=== PATIENT | female | born 1970 | race Two or more races ===

== ENCOUNTER 2016-12-29 13:21 | Emergency (ER) | payer OTHER ==
[~2016-12-29] VITALS: Ht 165.1 cm; Wt 65.0 kg
[2016-12-29 13:24] VITALS: BP 184/88; PULSE 83; RESP 22; TEMP 98.3; O2SAT 100
--- NOTE | 2016-12-29 13:28 | PD ---
Physical Exam Time Seen by Provider: 13:27 Narrative 46 y/o female presents with L flank pain since yesterday. Associated nausea, vomiting. Hx of ureteral stent placement yesterday. Hx limited by patient pain. She is being bedded now. [facility] Medical Record Reviewed: Yes Supervised Visit with KAMILA: Get Valdovinos December 29, 2016 13:28
[2016-12-29] MEDS ORDERED: HYDROmorphone HCL PF 1 MG/ML VIAL IVS ONE (13:45)
[2016-12-29] MEDS ORDERED: SODIUM CHLORIDE 0.9% FLUSH 10 ML FLUSH IV FLUSH PRN (13:45)
[2016-12-29] MEDS ORDERED: ONDANSETRON HCL 4 MG/2 ML VIAL IVP ONE (13:45)
[2016-12-29 14:25] LABS: AUTOMATED NEUTROPHIL # 7.4 TH/MM3 (1.8-7.7); BASOPHIL # 0.1 TH/MM3 (0-0.2); BASOPHIL % 0.7 % (0.0-2.0); EOSINOPHIL % 0.1 % (0.0-4.0); HEMATOCRIT 41.5 % (35.0-46.0); HEMO FLAGS DIFF FINAL; LYMPH % 7.5 % (9.0-44.0); LYMPHOCYTE # 0.7 TH/MM3 (1.0-4.8); MEAN CELL VOLUME 88.6 FL (80.0-100.0); MEAN CORPUSCULAR HEMOGLOBIN 30.7 PG (27.0-34.0); MEAN CORPUSCULAR HGB CONC 34.7 % (32.0-36.0); MONO % 8.1 % (0.0-8.0); NEUT % 83.6 % (16.0-70.0); PLATELET COUNT 239 TH/MM3 (150-450); RED BLOOD COUNT 4.68 MIL/MM3 (4.00-5.30); RED CELL DISTRIBUTION WIDTH 13.9 % (11.6-17.2); WHITE BLOOD COUNT 8.9 TH/MM3 (4.0-11.0)
[2016-12-29 14:26] VITALS: BP 186/92; PULSE 86; RESP 12; O2SAT 97
[2016-12-29 14:39] LABS: BLOOD, URINE MOD (NEG); COMMENT (UR) CULTURE INDICATED; CULTURE IF INDICATED CULTURE INDICATED; GLUCOSE,URINE NEG (NEG); KETONE, URINE NEG (NEG); NITRITE,URINE NEG (NEG)
[2016-12-29 14:40] LABS: URINE COLOR RED (YELLW/STRAW)
[2016-12-29 14:43] LABS: BICARBONATE 27.3 MEQ/L (21.0-32.0); POTASSIUM 3.4 MEQ/L (3.5-5.1)
--- NOTE | 2016-12-29 14:53 | PD ---
HPI Chief Complaint: Flank/Kidney Pain Time Seen by Provider: 13:37 Travel History International Travel<30 days: No Contact w/Intl Traveler<30days: No Traveled to known affect area: No History of Present Illness HPI 46-year-old female here with complaint of flank pain, suprapubic pain. History of ureterolithiasis and yesterday had bilateral ureteral stent placement, left lithotripsy by Dr. Kay of urology. Patient states that she has a history of stent placement previously and has not been able to tolerate this well. Patient notes pain greatest in the left flank, though it radiates down into the suprapubic region and up into the right flank as well. Hematuria, which she states she knew she would have postprocedural. No dysuria. She has associated nausea, vomiting and has not been able to tolerate her analgesics at home prompting ER visit. PFSH Past Medical History Kidney Stones: Yes ?: Not Past Surgical History Genitourinary Surgery: Yes (ureteral stent placement, lithotripsy ) Social History Tobacco Use: No Allergies-Medications (Allergen,Severity, Reaction): Coded Allergies: Sulfa (Verified Allergy, Severe, 12/29/16) Reported Meds & Prescriptions Reported Meds & Active Scripts Active Zofran Odt (Ondansetron Odt) 8 Mg Tab 8 Mg SL Q8H PRN Review of Systems Except as stated in HPI: all other systems reviewed are Neg Physical Exam Narrative GENERAL: Uncomfortable female in moderate distress hyperventilating SKIN: Focused skin assessment warm/dry. HEAD: Normocephalic. EYES: No scleral icterus. No injection or drainage. ENT: Mucous membranes pink and moist. NECK: Supple CARDIOVASCULAR: Regular rate and rhythm. No murmur appreciated. RESPIRATORY: No accessory muscle use. Clear to auscultation. Breath sounds equal bilaterally. GASTROINTESTINAL: Abdomen soft, mild suprapubic and diffuse abdominal tenderness to palpation, bilateral CVA tenderness MUSCULOSKELETAL: No obvious deformities. No edema. NEUROLOGICAL: Awake and alert. Normal speech. PSYCHIATRIC: Appropriate mood and affect; insight and judgment normal. Data Data Last Documented VS Vital Signs Date Time Temp Pulse Resp B/P Pulse Ox O2 Delivery O2 Flow Rate FiO2 12/29/16 14:26 86 12 186/92 97 Nasal Cannula 2 12/29/16 13:24 98.3 Orders Basic Metabolic Panel (Bmp) (12/29/16 13:40) Complete Blood Count With Diff (12/29/16 13:40) Urinalysis - C+S If Indicated (12/29/16 13:40) Iv Access Insert/Monitor (12/29/16 13:40) Ecg Monitoring (12/29/16 13:40) Oximetry (12/29/16 13:40) Sodium Chloride 0.9% Flush (Ns Flush) (12/29/16 13:45) Abdomen, Kub Only (12/29/16 13:40) Ondansetron Inj (Zofran Inj) (12/29/16 13:45) Hydromorphone Pf Inj (Dilaudid Pf Inj) (12/29/16 13:45) Urine Culture (12/29/16 14:00) Hydromorphone Pf Inj (Dilaudid Pf Inj) (12/29/16 15:45) Labs Laboratory Tests Test 12/29/16 14:00 White Blood Count 8.9 TH/MM3 Red Blood Count 4.68 MIL/MM3 Hemoglobin 14.4 GM/DL Hematocrit 41.5 % Mean Corpuscular Volume 88.6 FL Mean Corpuscular Hemoglobin 30.7 PG Mean Corpuscular Hemoglobin 34.7 % Concent Red Cell Distribution Width 13.9 % Platelet Count 239 TH/MM3 Mean Platelet Volume 9.0 FL Neutrophils (%) (Auto) 83.6 % Lymphocytes (%) (Auto) 7.5 % Monocytes (%) (Auto) 8.1 % Eosinophils (%) (Auto) 0.1 % Basophils (%) (Auto) 0.7 % Neutrophils # (Auto) 7.4 TH/MM3 Lymphocytes # (Auto) 0.7 TH/MM3 Monocytes # (Auto) 0.7 TH/MM3 Eosinophils # (Auto) 0.0 TH/MM3 Basophils # (Auto) 0.1 TH/MM3 CBC Comment DIFF FINAL Differential Comment Urine Color RED Urine Turbidity CLOUDY Urine pH 8.0 Urine Specific [place] 1.011 Urine Protein 100 mg/dL Urine Glucose (UA) NEG mg/dL Urine Ketones NEG mg/dL Urine Occult Blood MOD Urine Nitrite NEG Urine Bilirubin NEG Urine Urobilinogen LESS THAN 2.0 MG/DL Urine Leukocyte Esterase SMALL Urine RBC /hpf Urine WBC 18 /hpf Microscopic Urinalysis Comment CULTURE INDICATED Sodium Level 138 MEQ/L Potassium Level 3.4 MEQ/L Chloride Level 100 MEQ/L Carbon Dioxide Level 27.3 MEQ/L Anion Gap 11 MEQ/L Blood Urea Nitrogen 10 MG/DL Creatinine 0.81 MG/DL Estimat Glomerular Filtration 75 ML/MIN Rate Random Glucose 136 MG/DL Calcium Level 9.2 MG/DL [facility] Medical Decision Making Medical Screen Exam Complete: Yes Emergency Medical Condition: Yes Medical Record Reviewed: Yes Differential Diagnosis 46-year-old female with left lithotripsy and bilateral ureteral stent placement yesterday here with complaint of pain. Differential includes postprocedural pain, bladder spasm, UTI, stent malplacement. Narrative Course Patient placed on monitor, IV established and blood obtained. Given 4 MG Zofran , 1 mg Dilaudid with improvement of her symptoms. CBC, BMP, urinalysis notable only for hematuria which is to be expected postprocedural. We'll send culture. KUB showed left ureteral stent has displaced inferiorly in the most proximal end is in the mid ureter. Patient so uncomfortable given repeat dose of Dilaudid. I spoke with her urologist, Dr. Kay, who will see patient in his office now for ureteral stent removal. Diagnosis Primary Impression: Ureteral stent displacement Qualified Code: T83.122A - Ureteral stent displacement, initial encounter Referrals: Murphy Kay MD 1 day Additional Instructions: Nausea medications as needed. Drive to Dr. Kay's office now for ureteral stent removal. Med/Other Pt SpecificInfo: Prescription(s) given Scripts Ondansetron Odt (Zofran Odt)8 Mg Tab8 Mg SL Q8H PRN (NAUSEA OR VOMITING) #10 TAB Ref 0 Prov:Verna Coyle MD 12/29/16 Disposition: 01 DISCHARGE HOME Condition: Stable Verna Coyle MD December 29, 2016 14:53
--- NOTE | 2016-12-29 15:02 | RADRPT ---
EXAM DATE/TIME: 12/29/2016 14:46 [facility] COMPARISON: No previous studies available for comparison. INDICATIONS : Bilateral flank pain, nausea and vomiting. Evaluate ureteral stent placement. MEDICAL HISTORY : Kidney stones. SURGICAL HISTORY : Bilateral kidney stents and left lithotripsy on 12/28/16. ENCOUNTER: Initial ACUITY: 2 days PAIN SCORE: 10/10 LOCATION: Bilateral Flank. FINDINGS: A single supine frontal view the abdomen shows bilateral ureteral stents. The left stent has retracte d into the urinary bladder somewhat. The most cephalad portion of the stent is at the mid ureteral le bill. A right ureteral stent is in good position. Multiple bilateral renal calculi are observed. The l argest on the right measures 4 mm and on the left 6 mm. No appreciable ureteral stones. Normal bowel gas pattern. Bony structures are unremarkable. CONCLUSION: 1. Bilateral double-J stents. The left has fallen inferiorly as detailed above. 2. Bilateral renal stones. Jay Gu Jr., MD on December 29, 2016 at 14:58 Board Certified Radiologist. This report was verified electronically.
[2016-12-29] MEDS ORDERED: HYDROmorphone HCL PF 1 MG/ML VIAL IV PUSH ONE (15:45)
[2016-12-29] MEDS ORDERED: ZOFR8TAB4 SL (15:50)
[2016-12-29 15:59] VITALS: BP 154/76
== END 2016-12-29 16:01 | disposition home or self-care (01) ==
LOC: NEPD 13:21
DX: T83.122A Displacement of indwelling ureteral stent, initial encounter (principal); Z87.442 Personal history of urinary calculi; Z79.899 Other long term (current) drug therapy
CPT/HCPCS: 74000; 80048; 81001; 85025; 87086; 96374; 96375; 96376; 99284; J1170; J2405

== ENCOUNTER 2017-07-26 11:56 | Emergency (ER) | payer OTHER ==
[~2017-07-26 11:56] MED LIST: ZOFR8TAB4 SL
[2017-07-26 11:59] VITALS: BP 147/79; PULSE 81; RESP 12; TEMP 98.4; O2SAT 99
[2017-07-26] MEDS ORDERED: LEFL20TA11 PO (12:12)
[2017-07-26] MEDS ORDERED: RANI150T PO (12:12)
[2017-07-26] MEDS ORDERED: CYMB60CA PO (12:12)
[2017-07-26] MEDS ORDERED: TOPI25 PO (12:12)
[2017-07-26] MEDS ORDERED: PLAQ200T PO (12:12)
[2017-07-26] MEDS ORDERED: BACL10TA PO (12:12)
[2017-07-26] MEDS ORDERED: GABA100C4 PO (12:12)
[2017-07-26] MEDS ORDERED: PRED5TAB PO (12:12)
[2017-07-26] MEDS ORDERED: TRAZ50TA12 PO (12:12)
[2017-07-26] MEDS ORDERED: HYDR-3516 PO (12:12)
[2017-07-26] MEDS ORDERED: ONDANSETRON ODT 4 MG TAB PO ONE (13:15)
[2017-07-26] MEDS ORDERED: MORPHINE SULFATE 8 MG/ML INJ IM ONE (13:15)
--- NOTE | 2017-07-26 13:15 | PD ---
HPI Chief Complaint: Back/ Neck Pain or Injury Time Seen by Provider: 12:47 Travel History International Travel<30 days: No Contact w/Intl Traveler<30days: No Traveled to known affect area: No History of Present Illness HPI This patient complains of back pain. Location is low back pain in the center. It radiates down into her right buttock. She has chronic back pain but it flared up shortly after she lifted a 20 pound bag. No specific muscle group weakness or sensory loss. No urinary condoms or retention. She has history of rheumatoid arthritis. Denies fever. She is worse when upright but improved symptoms when flexing forward. Denies any spine imaging last several years. His pain is severe. PFSH Past Medical History Arthritis: Yes (RA) Kidney Stones: Yes Medical other: Yes (BACK PAIN) Influenza Vaccination: Yes ?: Not LMP: 2015 : 2 Para: 2 Past Surgical History Genitourinary Surgery: Yes (ureteral stent placement, lithotripsy ) Social History Alcohol Use: No Tobacco Use: No Substance Use: No Allergies-Medications (Allergen,Severity, Reaction): Coded Allergies: Sulfa (Sulfonamide Antibiotics) (Unverified Allergy, Severe, 07/26/17) Reported Meds & Prescriptions Reported Meds & Active Scripts Active Reported Hydrocodone-Acetaminophen 5-325 mg Tab 1 Tab PO TID PRN Baclofen 10 Mg Tab 10 Mg PO Q8HR Trazodone (Trazodone HCl) 50 Mg Tab 50 Mg PO HS Gabapentin 100 Mg Cap 100 Mg PO TID Ranitidine (Ranitidine HCl) 150 Mg Tab 150 Mg PO BID Plaquenil (Hydroxychloroquine Sulfate) 200 Mg Tab 100 Mg PO BID Take with food Leflunomide 10 Mg Tab 10 Mg PO DAILY Topamax (Topiramate) 25 Mg Tab 25 Mg PO BID Prednisone 5 Mg Tab 5 Mg PO DAILY Cymbalta DR (Duloxetine HCl) 60 Mg Capdr 60 Mg PO DAILY Review of Systems General / Constitutional: No: Fever Eyes: No: Visual changes HENT: No: Headaches Cardiovascular: No: Chest Pain or Discomfort Respiratory: No: Shortness of Breath Gastrointestinal: No: Abdominal Pain Genitourinary: No: Dysuria Musculoskeletal: Positive: Pain Skin: No Rash Neurologic: No: Weakness Psychiatric: No: Depression Endocrine: No: Polydipsia Hematologic/Lymphatic: No: Easy Bruising Physical Exam Narrative GENERAL: Well-nourished, well-developed patient with low mid back pain SKIN: Focused skin assessment reveals no rash and nodules. Skin is Warm and dry. HEAD: Atraumatic. Normocephalic. EYES: Pupils equal and round. No scleral icterus. No injection or drainage. ENT: No nasal bleeding or discharge. Mucous membranes pink and moist. NECK: Trachea midline. No JVD. CARDIOVASCULAR: Regular rate and rhythm. No murmur appreciated. RESPIRATORY: No accessory muscle use. Clear to auscultation. Breath sounds equal bilaterally. GASTROINTESTINAL: Abdomen soft, non-tender, nondistended. Hepatic and splenic margins not palpable. MUSCULOSKELETAL: No obvious deformities. No clubbing. No cyanosis. No edema. NEUROLOGICAL: Awake and alert. No obvious cranial nerve deficits. Motor grossly within normal limits. Normal speech. PSYCHIATRIC: Appropriate mood and affect; insight and judgment normal. Data Data Last Documented VS Vital Signs Date Time Temp Pulse Resp B/P (MAP) Pulse Ox O2 Delivery O2 Flow Rate FiO2 07/26/17 13:46 67 16 170/98 (122) 99 Room Air 07/26/17 11:[address] Lumb Spine W/O Contrast (07/26/17 ) Morphine Inj (Morphine Inj) (07/26/17 13:15) Ondansetron Odt (Zofran Odt) (07/26/17 13:15) MDM Medical Decision Making Medical Screen Exam Complete: Yes Emergency Medical Condition: Yes Medical Record Reviewed: Yes Differential Diagnosis Spinal stenosis, sciatica, lumbar strain Narrative Course I have reviewed the patient's electronic medical record. Don't see any objective neurologic deficit. Gave her injection of morphine and a dose of Zofran CT of lumbar spine is reviewed with the patient. No evidence of spinal stenosis or anything critical. On recheck she feels clinically improved. Stable for outpatient follow-up. She has pain pills and muscle relaxants etc. at home She should call her physician tomorrow morning for follow-up Diagnosis Primary Impression: Sciatica of right side Additional Impression: Low back pain Qualified Codes: M54.41 - Lumbago with sciatica, right side Additional Instructions: The patient was advised to follow up with their physician and return if they worsen. Med/Other Pt SpecificInfo: Other Disposition: 01 DISCHARGE HOME Condition: Stable Kristopher Jose MD Jul 26, 2017 13:15
[2017-07-26 13:46] VITALS: BP 170/98; PULSE 67; RESP 16; O2SAT 99
--- NOTE | 2017-07-26 14:12 | RADRPT ---
EXAM DATE/TIME: 07/26/2017 13:24 [facility] COMPARISON: No previous studies available for comparison. INDICATIONS : Lower back pain. RADIATION DOSE: 17.96 CTDIvol (mGy) MEDICAL HISTORY : Rheumatoid arthritis. Renal calculi. SURGICAL HISTORY : ureter stent placement ENCOUNTER: Initial ACUITY: 1 day PAIN SCALE: 8/10 LOCATION: Bilateral lower TECHNIQUE: Volumetric scanning of the lumbar spine was performed. Multiplanar reconstructions in the sagittal, coronal and oblique axial planes were performed. Using automated exposure control and adjustment of the mA and/or kV according to patient size, radiation dose was kept as low as reasonably achievable t o obtain optimal diagnostic quality images. DICOM format image data is available electronically for review and comparison. FINDINGS: VERTEBRAE: Normal vertebral body height. ALIGNMENT: No evidence of subluxation. Bilateral nonobstructing renal calculi. T12-L1: The thecal sac has a normal diameter. No evidence of disc bulge or protrusion. The neural foramina are patent bilaterally. L1-L2: The thecal sac has a normal diameter. No evidence of disc bulge or protrusion. The neural foramina are patent bilaterally. L2-L3: The thecal sac has a normal diameter. No evidence of disc bulge or protrusion. The neural foramina are patent bilaterally. L3-L4: There is a mild broad-based disc bulge. The lateral recesses, central canal, and neural foramen are p atent. L4-L5: There is a mild broad-based disc bulge. The lateral recesses, central canal, and neural foramen are p atent. L5-S1: There is a mild broad-based disc bulge. The lateral recesses, central canal, and neural foramen are p atent. CONCLUSION: 1. Bilateral nonobstructing renal calculi. The largest is on the left measuring 6 mm. 2. Minimal degenerative disc disease. No neural impingement or central canal stenosis. Jay Gu Jr., MD on July 26, 2017 at 14:06 Board Certified Radiologist. This report was verified electronically.
== END 2017-07-26 15:46 | disposition home or self-care (01) ==
LOC: NEPD 11:56
DX: M54.41 Lumbago with sciatica, right side (principal); M06.9 Rheumatoid arthritis, unspecified; Z79.899 Other long term (current) drug therapy; Z88.2 Allergy status to sulfonamides; Z87.442 Personal history of urinary calculi
CPT/HCPCS: 72131; 96372; 99285; J2270